=== PATIENT | male | born 1960 | race Caucasian/White ===

== ENCOUNTER 2019-11-14 18:53 | Emergency (ER) | payer BC ==
--- NOTE | 2019-11-14 19:31 | EDM.PDOC ---
ED HPI GENERAL MEDICAL PROBLEM - General Chief Complaint: Respiratory Problem Stated Complaint: SOB Time Seen by Provider: 11/14/19 19:10 Source of Information: Reports: Patient History Limitations: Reports: No Limitations - History of Present Illness INITIAL COMMENTS - FREE TEXT/NARRATIVE: Mr. Hardy is a very pleasant 59-year-old gentleman with no diagnosed medical problems, who now presents the ED stating that he has had dyspnea for more than 1 month. He primarily feels dyspneic with exertion, however, he does have some dyspnea at rest. He also reports orthopnea. He states that his symptoms have been waxing and waning, but are particularly bad today. He reports a slight cough productive of clear sputum, on and off for the past month, but no fever. He denies having chest discomfort, but states that his lungs have felt heavy for the past month. He denies edema or tight fitting clothes. He denies having any weight loss. He states that he went to the [facility] about 1 month ago, and was tested for COVID-19, which returned negative. He states that no other tests were done. He returned there today, but was directed here without any testing being done there. Here in the ED, the patient's initial BP is found to be elevated at 160/100, with tachypnea of 28 rpm. He is afebrile, saturating 88% on room air, 100% on 2 L per nasal cannula. The supplemental oxygen was removed. Other than his presenting symptoms, the patient denies recent fever, chills, sore throat, ear pain, nasal or sinus congestion, chest pain, palpitations, nausea, vomiting, constipation, diarrhea, abdominal pain, urinary symptoms, recent weight gain or weight loss, recent bloody bowel movements or black bowel movements, recent joint aches, headaches, or rashes. The patient does not have a PCP. Chest Pain Score (Numeric/FACES): 5 - Related Data Allergies Allergy/AdvReac Type Severity Reaction Status Date / Time No Known Allergies Allergy Verified 11/14/19 19:14 Home Meds: Home Meds . [No Known Home Meds] 11/14/19 [History] Past Medical History - Past Surgical History HEENT Surgical History: Reports: Oral Surgery (2 wisdom teeth extracted), Tonsillectomy, Other (See Below) (Right submandibular salivary gland excision) Dermatological Surgical History: Reports: Other (See Below) (Pilonidal cyst excision) Social & Family History - Tobacco Use Years of Tobacco use: 46 Packs/Tins Daily: 1 Packs/Tins Daily Comment: Down from 1.5 ppd - Alcohol Use Alcohol Use History: Yes Alcohol Use Frequency: Socially - Recreational Drug Use Recreational Drug Use: No - Living Situation & Occupation Living situation: Reports: , with Spouse, Other ('s caregiver) 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 ED EXAM, GENERAL - Physical Exam Exam: See Below Exam Limited By: No Limitations General Appearance: Alert, No Apparent Distress, Thin Ears: Normal External Exam, Hearing Grossly Normal Nose: Normal Inspection Throat/Mouth: Normal Inspection, Normal Lips, Normal Voice, No Airway Compromise Head: Atraumatic, Normocephalic Neck: Normal Inspection, Full Range of Motion Respiratory/Chest: No Respiratory Distress, No Accessory Muscle Use, Decreased Breath Sounds. No: Crackles, Rhonchi, Wheezing, Stridor, Prolonged Expiration Cardiovascular: Normal Peripheral Pulses, Regular Rate, Rhythm, No Edema, No Gallop, No JVD, No Murmur, No Rub Peripheral Pulses: 3+: Radial (L), Radial (R) GI/Abdominal: Normal Bowel Sounds, Soft, Non-Tender, No Organomegaly, No Distention, No Abnormal Bruit, No Mass (Male) Exam: Deferred Rectal (Males) Exam: Deferred Back Exam: Normal Inspection, Full Range of Motion, NT Extremities: Normal Inspection, Normal Range of Motion, No Pedal Edema, Normal Capillary Refill Neurological: Alert, Oriented, Normal Cognition, No Motor/Sensory Deficits Psychiatric: Normal Affect Skin Exam: Warm, Dry, Intact, Normal Color, No Rash EKG INTERPRETATION EKG Date: 11/14/19 Time: 19:45 Rhythm: NSR Rate (Beats/Min): 86 [place]: 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) P-Wave: Present QRS: Other (Early transition) ST-T: Normal QT: Normal Comparison: NA - No Prior EKG Course - Vital Signs Last Recorded V/S: Last Vital Signs Temp 36.3 C 11/14/19 19:09 Pulse 95 11/14/19 19:09 Resp 28 H 11/14/19 19:09 BP 160/100 H 11/14/19 19:09 Pulse Ox 88 L 11/14/19 19:09 - Orders/Labs/Meds Orders: Active Orders 24 hr Category Date Time Status EKG Documentation Completion [RC] STAT Care 11/14/19 19:25 Active Labs: Laboratory Tests 11/14/19 11/14/19 11/14/19 Range/Units 19:35 19:38 19:38 WBC 7.78 (4.23-9.07) K/mm3 RBC 5.03 (4.63-6.08) M/mm3 Hgb 15.4 (13.7-17.5) gm/dl Hct 47.3 (40.1-51.0) % MCV 94.0 H (79.0-92.2) fl MCH 30.6 (25.7-32.2) pg MCHC 32.6 (32.2-35.5) g/dl RDW Std Deviation 49.0 H (35.1-43.9) fL Plt Count 309 (163-337) K/mm3 MPV 8.3 L (9.4-12.3) fl Neutrophils % (Manual) 63 H (40-60) % Band Neutrophils % 0 (0-10) % Lymphocytes % (Manual) 24 (20-40) % Atypical Lymphs % 0 % Monocytes % (Manual) 10 (2-10) % Eosinophils % (Manual) 2 (0.8-7.0) % Basophils % (Manual) 1 (0.2-1.2) Platelet Estimate Adequate RBC Morph Comment Normal PT 10.3 (9.7-12.0) SECONDS INR 0.94 APTT 28 (22-31) SECONDS D-Dimer, Quantitative 0.70 H (0.19-0.50) mg/L Puncture Site Rt radial ABG pH 7.38 (7.35-7.45) ABG pCO2 52.4 H (35.0-45.0) mmHg ABG pO2 66.0 L (80.0-100.0) mmHg ABG HCO3 29.9 H (22.0-26.0) meq/L ABG O2 Saturation 90.5 L (96.0-97.0) % ABG Base Excess 3.9 H (-2-2.0) Zach Test Positive A-a Gradient 19 mmHg O2 Delivery Device Room air FiO2 21.00 (21.00-100.00) % Sodium (136-145) mEq/L Potassium (3.5-5.1) mEq/L Chloride (98-107) mEq/L Carbon Dioxide (21-32) mEq/L Anion Gap (5-15) BUN (7-18) mg/dL Creatinine (0.7-1.3) mg/dL Est Cr Clr Drug Dosing mL/min Estimated GFR (MDRD) (>60) mL/min BUN/Creatinine Ratio (14-18) Glucose (80-115) mg/dL Lactic Acid (0.4-2.0) mmol/L Calcium (8.5-10.1) mg/dL Magnesium (1.8-2.4) mg/dl Total Bilirubin (0.2-1.0) mg/dL AST (15-37) U/L ALT (16-63) U/L Alkaline Phosphatase (46-116) U/L Troponin I (0.00-0.056) ng/mL NT-Pro-B Natriuret Pep (0-125) pg/mL Total Protein (6.4-8.2) g/dl Albumin (3.4-5.0) g/dl Globulin gm/dL Albumin/Globulin Ratio (1-2) 11/14/19 11/14/19 11/14/19 Range/Units 19:38 19:38 19:38 WBC (4.23-9.07) K/mm3 RBC (4.63-6.08) M/mm3 Hgb (13.7-17.5) gm/dl Hct (40.1-51.0) % MCV (79.0-92.2) fl MCH (25.7-32.2) pg MCHC (32.2-35.5) g/dl RDW Std Deviation (35.1-43.9) fL Plt Count (163-337) K/mm3 MPV (9.4-12.3) fl Neutrophils % (Manual) (40-60) % Band Neutrophils % (0-10) % Lymphocytes % (Manual) (20-40) % Atypical Lymphs % % Monocytes % (Manual) (2-10) % Eosinophils % (Manual) (0.8-7.0) % Basophils % (Manual) (0.2-1.2) Platelet Estimate RBC Morph Comment PT (9.7-12.0) SECONDS INR APTT (22-31) SECONDS D-Dimer, Quantitative (0.19-0.50) mg/L Puncture Site ABG pH (7.35-7.45) ABG pCO2 (35.0-45.0) mmHg ABG pO2 (80.0-100.0) mmHg ABG HCO3 (22.0-26.0) meq/L ABG O2 Saturation (96.0-97.0) % ABG Base Excess (-2-2.0) Zach Test A-a Gradient mmHg O2 Delivery Device FiO2 (21.00-100.00) % Sodium 141 (136-145) mEq/L Potassium 4.4 (3.5-5.1) mEq/L Chloride 102 (98-107) mEq/L Carbon Dioxide 30 (21-32) mEq/L Anion Gap 13.4 (5-15) BUN 11 (7-18) mg/dL Creatinine 1.1 (0.7-1.3) mg/dL Est Cr Clr Drug Dosing 61.34 mL/min Estimated GFR (MDRD) > 60 (>60) mL/min BUN/Creatinine Ratio 10.0 L (14-18) Glucose 88 (80-115) mg/dL Lactic Acid 0.6 (0.4-2.0) mmol/L Calcium 9.3 (8.5-10.1) mg/dL Magnesium 1.9 (1.8-2.4) mg/dl Total Bilirubin 0.3 (0.2-1.0) mg/dL AST 22 (15-37) U/L ALT 17 (16-63) U/L Alkaline Phosphatase 84 (46-116) U/L Troponin I < 0.017 (0.00-0.056) ng/mL NT-Pro-B Natriuret Pep 41 (0-125) pg/mL Total Protein 7.6 (6.4-8.2) g/dl Albumin 3.8 (3.4-5.0) g/dl Globulin 3.8 gm/dL Albumin/Globulin Ratio 1.0 (1-2) Meds: Medications Discontinued Medications Generic Name Dose Route Start Last Admin Trade Name Freq PRN Reason Stop Dose Admin Sodium Chloride 1,000 mls @ 999 mls/hr 11/14/19 21:12 11/14/19 21:31 Normal Saline IV 11/14/19 22:12 999 mls/hr ONETIME ONE Administration Sodium Chloride 100 mls @ 4 mls/sec 11/14/19 21:18 Normal Saline IV 11/14/19 21:19 ONETIME ONE Iopamidol 100 ml 11/14/19 21:18 [id number] (76%) IVPUSH 11/14/19 21:19 ONETIME ONE - Re-Assessments/Exams Free Text/Narrative Re-Assessment/Exam: 11/14/19 19:26 As above, the patient has been experiencing dyspnea, primarily with exertion, but also at rest, with orthopnea and a heavy feeling in his lungs, for over a month. He is borderline hypoxemic here in the ED. His physical exam is unremarkable. I have ordered a workup that includes bloodwork, an ABG, a chest XRay, and an ECG. 11/14/19 19:54 The patient's ABG represents a chronic/compensated respiratory acidosis. 11/14/19 20:22 Two-view chest radiograph reviewed. The cardiac silhouette is within normal limits. No pulmonary vascular congestion. No pleural effusions. No focal infiltrate, however, the bilateral diaphragms are indistinct bilaterally on the PA view, suggesting atelectasis. The diaphragms on the lateral view are distinct. No pneumothorax. There is hyperinflation and bilateral diaphragmatic flattening, consistent with COPD. Formal read per the Radiologist pending. 11/14/19 20:55 The patient's CBC is unremarkable. His CMP is unremarkable. His magnesium level is within normal limits at 1.9. His lactic acid level is within normal limits at 0.6. His troponin is undetectably low. His D-dimer is slightly elevated at 0.70. His coags are within normal limits. Notified by lab that the BNP is indefinitely delayed, however, since the patient does not have opacities on his chest x-ray, the BNP is clinically irrelevant. 11/14/19 21:11 Test results discussed with the patient. As above, his work-up today is unremarkable, with the exception of a mildly elevated D-dimer. Ordinarily, a D- dimer of 0.7 would not be considered consistent with a pulmonary embolus, however, the D-dimer declines over time, and since this patient has been symptomatic for more than a month, it is possible that he could have a substantial PE and still have such a low D-dimer. I therefore had to recommend that we perform a CT angiogram of the chest to evaluate for a PE. The patient has agreed. I have also ordered IV fluid. 11/14/19 22:17 CT angiogram of the chest is read by Dr. Hill as: 1. No findings of pulmonary embolism. 2. Other findings which are felt to be chronic. Nothing acute is appreciated. 11/14/19 22:21 CT results discussed with the patient. As above, the patient does not have a PE, nor does the CT angiogram find any other explanation for his symptoms. The cause of his symptoms is not apparent, although could be due to progressively worsening COPD, or, potentially, to a structural heart abnormality. I will discharge him home with a referral to the clinic, where he can establish a PCP who can order outpatient PFTs and an echocardiogram. 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 Work-up in the ER included blood work, an arterial blood gas, and a chest x-ray, a CT angiogram of your chest, and an ECG. Your entire work-up was unremarkable, and does not explain the cause of your symptoms. Both your chest x-ray and CT angiogram suggest that you might have COPD, and it is possible that your symptoms are due to progressively worsening COPD. We recommend that you follow-up with Shena Smith NP, or one of the other providers in the clinic, to establish a PCP. They can then order outpatient pulmonary function tests (PFTs) and an echocardiogram (ultrasound of your heart) has further evaluation. If any other problems, please do not hesitate to return to the ER. Sepsis Event Note (ED) - Evaluation Sepsis Screening Result: No Definite Risk - Focused Exam Vital Signs: Vital Signs Temp Pulse Resp BP Pulse Ox 11/14/19 19:09 36.3 C 95 28 H 160/100 H 88 L - My Orders Last 24 Hours: My Active Orders 11/14/19 19:25 EKG Documentation Completion [RC] STAT - Assessment/Plan Last 24 Hours: My Active Orders 11/14/19 19:25 EKG Documentation Completion [RC] STAT
--- NOTE | 2019-11-14 20:39 | CR ---
Chest: 2 views of the chest are obtained. Comparison: No prior chest imaging is available. Lungs are hyperinflated compatible with emphysematous change. Heart size and mediastinum are normal. Slight scoliosis is noted within the spine with scattered degenerative change consisting of disc space narrowing and endplate spurring. No acute parenchymal process is seen within either lung. Impression: 1. Emphysematous change. 2. Other findings as noted above. 3. Nothing acute is appreciated. Diagnostic code #2 Study was dictated in MDT
[2019-11-14] MEDS ORDERED: Sodium Chloride 0.9% 1,000 ML IV ONE (21:12)
[2019-11-14] MEDS ORDERED: Iopamidol 755 Mg/ML 100 ML Bottle IVPUSH ONE (21:18)
[2019-11-14] MEDS ORDERED: Sodium Chloride 0.9% 100 ML IV ONE (21:18)
--- NOTE | 2019-11-14 22:12 | CT ---
CT chest Technique: Multiple axial sections through the chest were obtained. Reconstructed coronal and sagittal images were obtained. Intravenous contrast was utilized. Study performed as a pulmonary angiogram protocol. Findings: Pulmonary arteries are well-opacified. No filling defects are seen to indicate pulmonary embolism. Aorta shows no aneurysm. Mediastinum shows no adenopathy. Hilar regions also show no adenopathy. No axillary adenopathy is seen. Visualized upper abdominal structures shows no discrete abnormality. Lung window settings were reviewed which shows emphysematous change. No acute parenchymal change is seen. Bone window settings were reviewed which shows scattered endplate spurring within the spine with disc space narrowing. No acute osseous finding is appreciated. Impression: 1. No findings of pulmonary embolism. 2. Other findings which are felt to be chronic. Nothing acute is appreciated. Diagnostic code #2 Study was dictated in MDT
== END 2019-11-14 22:35 | disposition home or self-care (01) ==
LOC: JD.ED 18:53
DX: I44.4 Left anterior fascicular block (principal); F17.210 Nicotine dependence, cigarettes, uncomplicated
CPT/HCPCS: 36415; 36600; 71046; 71275; 80053; 82803; 83605; 83735; 83880; 84484; 85007; 85027; 85379; 85610; 85730; 93005; 99285; J7030; 93010; 99283